=== PATIENT | female | born 1995 | race American Indian/Alaskan Native ===

== ENCOUNTER 2017-06-05 21:08 | Emergency (ER) | payer MEDICAID ==
[2017-06-05 22:18] LABS: Bilirubin,Urine NEG (Negative); Blood,Urine NEG (Negative); Ketones,Urine NEG (Negative); Leukocyte Esterase,Urine TR (Negative); Mucus,Urine FEW /HPF; Nitrite,Urine NEG (Negative); Protein,Urine <15 mg/dL mg/dL (Negative); Urobilinogen,Urine < 2.0 mg/dL (<2.0)
[2017-06-06 04:34] VITALS: BP 110/64
[2017-06-06] MEDS ORDERED: ROCEPHIN IM ONE (04:36)
[2017-06-06] MEDS ORDERED: TYLENOL PO ONE (04:36)
[2017-06-06] MEDS ORDERED: VIBRAMYCIN PO ONE (04:36)
[2017-06-06] MEDS ORDERED: XYLOCAINE 1% MPF 5 mL INFILTRATI ONE (04:36)
--- NOTE | 2017-06-06 04:38 | Emergency Department Report ---
ED Female HPI - General Chief complaint: Urogenital-Female Stated complaint: ABD PAIN/VAG D/C Time Seen by Provider: 06/06/17 04:19 Source: patient, RN notes reviewed Mode of arrival: Ambulatory Limitations: No Limitations - History of Present Illness Initial comments: This is a 22-year-old female, she is previously unknown to me, she reports a distant history of chlamydia. She presents to the ER with lower back pain, pelvic cramping, discomfort, dysuria. Reports this feels similar to prior episode of chlamydia. No headache, neck pain, chest pain, shortness of breath. No vaginal bleeding. No new or different sexual partners. Patient present for a few days, does not radiate anywhere, has no exacerbating or relieving factors. MD Complaint: dysuria, pelvic pain, possible STD -: Gradual Location: suprapubic Severity: mild Quality: cramping Consistency: intermittent Improves with: none Worsens with: none Are you Now?: No Associated Symptoms: abdominal pain, dysuria. denies: nausea/vomiting - Related Data Sexually active: Yes Previous Rx's Medication Instructions Recorded Last Taken Type Acetaminophen [Tylenol Arthritis] 650 mg PO Q6HR PRN #30 tablet.er 06/06/17 Unknown Rx Doxycycline [Vibramycin] 100 mg PO Q12HR #28 capsule 06/06/17 Unknown Rx Ondansetron [Zofran Odt] 4 mg PO QID PRN #20 tab.rapdis 06/06/17 Unknown Rx Allergies Allergy/AdvReac Type Severity Reaction Status Date / Time No Known Allergies Allergy Unverified 06/05/17 21:29 ED Review of Systems ROS: Stated complaint: ABD PAIN/VAG D/C Other details as noted in HPI Constitutional: denies: malaise Eyes: denies: eye discharge ENT: denies: epistaxis Respiratory: denies: cough Cardiovascular: denies: chest pain Gastrointestinal: abdominal pain Genitourinary: dysuria, discharge Musculoskeletal: denies: back pain Skin: denies: lesions Neurological: denies: weakness Psychiatric: anxiety ED Past Medical Hx - Social History Smoking Status: Never Smoker Substance Use Type: None - Medications Home Medications: Home Medications Medication Instructions Recorded Confirmed Last Taken Type Acetaminophen [Tylenol Arthritis] 650 mg PO Q6HR PRN #30 tablet.er 06/06/17 Unknown Rx Doxycycline [Vibramycin] 100 mg PO Q12HR #28 capsule 06/06/17 Unknown Rx Ondansetron [Zofran Odt] 4 mg PO QID PRN #20 tab.rapdis 06/06/17 Unknown Rx ED Physical Exam - General Limitations: No Limitations General appearance: alert, in no apparent distress - Head Head exam: Present: atraumatic, normocephalic - Eye Eye exam: Present: normal appearance, EOMI. Absent: nystagmus - ENT ENT exam: Present: normal exam, normal orophraynx, mucous membranes moist, normal external ear exam - Neck Neck exam: Present: normal inspection, full ROM. Absent: tenderness, meningismus - Respiratory Respiratory exam: Present: normal lung sounds bilaterally. Absent: respiratory distress, wheezes, rales, rhonchi, stridor, chest wall tenderness, accessory muscle use, decreased breath sounds, prolonged expiratory - Cardiovascular Cardiovascular Exam: Present: regular rate, normal rhythm, normal heart sounds. Absent: bradycardia, tachycardia, irregular rhythm, systolic murmur, diastolic murmur, rubs, gallop - GI/Abdominal GI/Abdominal exam: Present: soft, normal bowel sounds. Absent: distended, tenderness, guarding, rebound, rigid, pulsatile mass - External exam: Present: normal external exam Speculum exam: Present: normal speculum exam, cervical discharge. Absent: vaginal bleeding Bi-manual exam: Present: normal bi-manual exam, other (escorted by nurse marquita westfall). Absent: cervical motion tendernes, adnexal tenderness, adnexal mass - Extremities Exam Extremities exam: Present: normal inspection, full ROM, normal capillary refill. Absent: pedal edema, joint swelling, calf tenderness - Back Exam Back exam: Present: normal inspection, full ROM. Absent: tenderness, CVA tenderness (R), CVA tenderness (L), muscle spasm, paraspinal tenderness, vertebral tenderness - Neurological Exam Neurological exam: Present: alert, oriented X3, normal gait, other (Extraocular movements intact. Tongue midline. No facial droop. Facial sensation intact to light touch in the V1, V2, V3 distribution bilaterally. 5 and 5 strength in 4 extremities.. Sensation is intact to light touch in 4 extremities.). Absent : motor sensory deficit - Psychiatric Psychiatric exam: Present: normal affect, normal mood - Skin Skin exam: Present: warm, dry, intact, normal color. Absent: rash ED Course Vital Signs 06/05/17 06/06/17 21:26 04:25 Temperature 98.9 F 98.2 F Pulse Rate 108 H 88 Respiratory 18 16 Rate Blood Pressure 123/67 Blood Pressure 110/64 [Left] O2 Sat by Pulse 100 98 Oximetry ED Medical Decision Making - Lab Data Vital Signs 06/05/17 06/06/17 21:26 04:25 Temperature 98.9 F 98.2 F Pulse Rate 108 H 88 Respiratory 18 16 Rate Blood Pressure 123/67 Blood Pressure 110/64 [Left] O2 Sat by Pulse 100 98 Oximetry Lab Results 06/05/17 Range/Units 22:00 Urine Color Yellow (Yellow) Urine Turbidity Clear (Clear) Urine pH 5.0 (5.0-7.0) Ur Specific [place] 1.024 (1.003-1.030) Urine Protein <15 mg/dl (Negative) mg/dL Urine Glucose (UA) Neg (Negative) mg/dL Urine Ketones Neg (Negative) mg/dL Urine Blood Neg (Negative) Urine Nitrite Neg (Negative) Ur Reducing Substances Not Reportable Urine Bilirubin Neg (Negative) Urine Ictotest Not Reportable Urine Urobilinogen < 2.0 (<2.0) mg/dL Ur Leukocyte Esterase Tr (Negative) Urine WBC (Auto) 8.0 H (0.0-6.0) /HPF Urine RBC (Auto) 1.0 (0.0-6.0) /HPF U Epithel Cells (Auto) 1.0 (0-13.0) /HPF Urine Mucus Few /HPF Urine HCG, Qual Negative (Negative) Differential diagnosis: Urinary tract infection, pelvic inflammatory disease, gonorrhea/chlamydia Assessment and plan: 24-year-old female with pelvic pain, benign gynecologic examination, not consistent with tubo-ovarian abscess, nonspecific irritative urinary symptoms, leukocyte esterase and white blood cells noted in urinalysis, suggestive of chlamydia. Patient will Treated empirically for gonorrhea/chlamydia. Patient is afebrile, with reassuring vital signs and her tachycardia has resolved. Patient wanted to be discharged, her wet prep resulted after discharge, and temperature to trichomoniasis, however this can be followed up as an outpatient, as she was explicitly instructed to have a primary care doctor or go go dancer contact the medical records department for lab results. Critical care attestation.: If time is entered above; I have spent that time in minutes in the direct care of this critically ill patient, excluding procedure time. ED Disposition Clinical Impression: Abdominal pain Disposition: DC-01 TO HOME OR SELFCARE Is pt being admited?: No Does the pt Need Aspirin: No Condition: Stable Instructions: Pelvic Inflammatory Disease (ED) Additional Instructions: Given all this, you'll be treated empirically for disease called pelvic inflammatory disease. We typically treat young females with unexplained lower abdominal pain to protect your ability to have children safely in the future. Cultures were sent today, and results will be available next 3-5 days. Please have your primary care doctor call the medical records department to obtain your culture results. Take the antibiotic therapy as directed. Take the nausea medication and pain medication as directed. I recommend outpatient testing for sexually transmitted diseases, including hepatitis, syphilis and HIV. I also recommend that you abstain from sexual activity until you have completed her antibiotic therapy, a physician states that it is safe for you to resume sexual activity, and any partners that you have been sexually active with have been tested/treated/evaluated for sexual transmitted diseases. Please follow-up with physician within 3-5 days. I recommend that you return to the ER right away with worsening pain, migration of pain, intractable nausea/vomiting, inability tolerate liquid feeds. Prescriptions: Acetaminophen [Tylenol Arthritis] 650 mg PO Q6HR PRN #30 tablet.er PRN Reason: Pain Doxycycline [Vibramycin] 100 mg PO Q12HR #28 capsule Ondansetron [Zofran Odt] 4 mg PO QID PRN #20 tab.rapdis PRN Reason: Nausea Referrals: PRIMARY CAREMD [Primary Care Provider] - 3-5 Days [facility] [Provider Group] - 3-5 Days [facility] [Provider Group] - 3-5 Days [facility] [Provider Group] - 3-5 Days [facility] [Provider Group] - 3-5 Days
== END 2017-06-06 05:04 | disposition home or self-care (01) ==
LOC: ED 21:08
DX: R10.2 Pelvic and perineal pain (principal); M54.5 Low back pain
CPT/HCPCS: 81001; 81025; 87210; 87591; 96372; 99284; J0696

== ENCOUNTER 2018-04-30 10:26 | Emergency (ER) | payer MEDICAID ==
[2018-04-30 10:45] VITALS: BP 127/77
[2018-04-30 12:10] LABS: HCG Qualitative,Urine Positive (Negative)
--- NOTE | 2018-04-30 12:21 | Emergency Department Report ---
Blank Doc - Documentation Documentation: Patient is a 23-year-old black female who is most likely in her second trimester was not had an ultrasound to confirm dates as of yet who is experiencing some mild lower abdominal discomfort as well as some vaginal spotting. The patient states there was some mild dysuria this morning as well however spotting started yesterday and was painless. Patient will have a quantitative ultrasound done today to rule out ectopic and the patient will also have a urinalysis performed.
--- NOTE | 2018-04-30 12:37 | Emergency Department Report ---
ED HPI - General Chief complaint: Vaginal Bleeding Stated complaint: BLEEDING 4MOS Time Seen by Provider: 04/30/18 12:14 Source: patient Mode of arrival: Ambulatory Limitations: No Limitations - History of Present Illness Initial comments: This is a 23-year-old -[place] female who presents with spotting during one . Patient states she was seen once at [facility] and had a follow-up appointment with her MECHANICAL INSULATOR for this Saturday but was unable to make appointment. Patient states last menstrual period was 12/18/2017. Patient states [facility] confirm on her first appointment. She is 4 months . Patient states she voided this morning around 0820 and noticed blood floating in toilet. She is also complaining of lower abdominal discomfort yesterday. Patient states pain was sharp x 2 but has now resolved. Patient states the appointment she missed on Saturday at [facility] was for an ultrasound. She admits to frequency. Denies discharge or vaginal bleeding, fever, and low back pain. MD Complaint: abdominal pain, other (hematuria) -: This morning Location: abdomen (lower abdominal pain) Radiation: none Severity: mild Severity scale (0 -10): 3 Quality: sharp Consistency: now resolved Improves with: none Worsens with: none Associated symptoms: denies other symptoms Vaginal bleeding: none :: Yes OB History - Current : no complications OB History - Previous Pregnancies: no complications Last menstrual period: 01/17/18 Pre-lillian care: followed by OB - Related Data : 1 Para: 0 Ab: 0 Previous Rx's Medication Instructions Recorded Last Taken Type Acetaminophen [Tylenol Arthritis] 650 mg PO Q6HR PRN #30 tablet.er 06/06/17 Unknown Rx Doxycycline [Vibramycin] 100 mg PO Q12HR #28 capsule 06/06/17 Unknown Rx Ondansetron [Zofran Odt] 4 mg PO QID PRN #20 tab.rapdis 06/06/17 Unknown Rx Nitrofurantoin Macrocrystal 100 mg PO BID #10 capsule 04/30/18 Unknown Rx [Nitrofurantoin] Allergies Allergy/AdvReac Type Severity Reaction Status Date / Time No Known Allergies Allergy Unverified 06/05/17 21:29 ED Review of Systems ROS: Stated complaint: BLEEDING 4MOS Other details as noted in HPI Constitutional: denies: chills, fever Respiratory: denies: cough, shortness of breath, wheezing Cardiovascular: denies: chest pain, palpitations Gastrointestinal: abdominal pain (lower abdominal cramping). denies: nausea, vomiting, diarrhea Genitourinary: frequency, hematuria. denies: urgency, dysuria, discharge Musculoskeletal: denies: back pain, joint swelling, arthralgia Neurological: denies: headache, weakness, paresthesias Psychiatric: denies: anxiety, depression ED Past Medical Hx - Past Medical History Previous Medical History?: No - Surgical History Past Surgical History?: No - Social History Smoking Status: Never Smoker Substance Use Type: None - Medications Home Medications: Home Medications Medication Instructions Recorded Confirmed Last Taken Type Acetaminophen [Tylenol Arthritis] 650 mg PO Q6HR PRN #30 tablet.er 06/06/17 Unknown Rx Doxycycline [Vibramycin] 100 mg PO Q12HR #28 capsule 06/06/17 Unknown Rx Ondansetron [Zofran Odt] 4 mg PO QID PRN #20 tab.rapdis 06/06/17 Unknown Rx Nitrofurantoin Macrocrystal 100 mg PO BID #10 capsule 04/30/18 Unknown Rx [Nitrofurantoin] ED Physical Exam - General Limitations: No Limitations General appearance: alert, in no apparent distress - Respiratory Respiratory exam: Present: normal lung sounds bilaterally. Absent: respiratory distress - Cardiovascular Cardiovascular Exam: Present: regular rate, normal rhythm, normal heart sounds. Absent: systolic murmur, diastolic murmur, rubs, gallop - GI/Abdominal GI/Abdominal exam: Present: soft, normal bowel sounds. Absent: distended, tenderness, guarding, rebound, rigid - Back Exam Back exam: Present: normal inspection. Absent: CVA tenderness (R), CVA tenderness (L) - Neurological Exam Neurological exam: Present: alert, oriented X3 - Psychiatric Psychiatric exam: Present: normal affect, normal mood - Skin Skin exam: Present: warm, dry, intact, normal color. Absent: rash ED Course Vital Signs 04/30/18 10:41 Temperature 98.5 F Pulse Rate 90 Respiratory 16 Rate Blood Pressure 127/77 [Left] O2 Sat by Pulse 100 Oximetry ED Medical Decision Making - Radiology Data Radiology results: report reviewed, image reviewed OB ULTRASOUND GREATER THAN 14 WEEKS INDICATION: with vaginal bleeding. COMPARISON: None similar at this institution. TECHNIQUE: Transabdominal grayscale ultrasound with Doppler interrogation. Gestation: Loya Position: Variable Amniotic Fluid: WNL (<24 weeks, subjective) Placenta: Anterior Placental Grade: Zero Heart Rate: 155 BPM Cervical length: 3.2 cm (Normal > 3 cm) It is too early for a anatomical survey BPD: 3 cm = 15 w 3 d HC: 11.3 cm = 15 w 3 d AC: 9.2 cm = 15 w 3 d FL: 1.8 cm = 15 w 1 d HC/AC Ratio: 1.2 Cephalic Index: 85.3 LMP: 01/17/2018 Clinical age = 14 w 5 d EDC: 10/24/2018 US Gest. Age = 15 w 3 d EDC: 10/19/2018 CONCLUSION: Single, viable intrauterine gestation with ultrasound estimated age of 15 weeks and 3 days and EDC of 10/19/2018, currently in variable lie with details, as above. - Medical Decision Making This is a 23 y.o. female presents with hematuria and abdominal discomfort during this morning. Patient was examined by me. Vitals are normal and patient is in no acute distress. Obtained labs and OB ultrasound. Quant [id number]. Single, viable intrauterine gestation with ultrasound estimated age of 15 weeks and 3 days and EDC of 10/19/2018, currently in variable lie with details , as above. Will treat with nitrofurantoin for acute cystitis. Patient instructed to follow up with MECHANICAL INSULATOR. Patient discharged home in stable condition. Critical care attestation.: If time is entered above; I have spent that time in minutes in the direct care of this critically ill patient, excluding procedure time. ED Disposition Clinical Impression: Abdominal cramping affecting Acute cystitis during Qualifiers: Trimester: second trimester Qualified Code(s): O23.12 - Infections of bladder in , second trimester Disposition: DC-01 TO HOME OR SELFCARE Is pt being admited?: No Does the pt Need Aspirin: No Condition: Stable Instructions: Urinary Tract Infection in Women (ED), (ED), Abdominal Pain in (ED) Additional Instructions: Increase fluids to 1-2 L daily. Continues take an medical vitamins daily. Follow-up with MECHANICAL INSULATOR in 2-3 days. Prescriptions: Nitrofurantoin Macrocrystal [Nitrofurantoin] 100 mg PO BID #10 capsule Referrals: TANNER BRAGG MD [Staff Physician] - 3-5 Days [facility] [Provider Group] - 3-5 Days [facility] [Provider Group] - 3-5 Days Time of Disposition: 15:40
[2018-04-30 12:47] LABS: Bilirubin,Urine NEG (Negative); Blood,Urine LG (Negative); Color,Urine Yellow (Yellow); Mucus,Urine FEW /HPF; Protein,Urine <15 mg/dL mg/dL (Negative)
--- NOTE | 2018-04-30 14:58 | Ultrasound Report ---
OB ULTRASOUND GREATER THAN 14 WEEKS INDICATION: with vaginal bleeding. COMPARISON: None similar at this institution. TECHNIQUE: Transabdominal grayscale ultrasound with Doppler interrogation. Gestation: Loya Position: Variable Amniotic Fluid: WNL (<24 weeks, subjective) Placenta: Anterior Placental Grade: Zero Heart Rate: 155 BPM Cervical length: 3.2 cm (Normal > 3 cm) It is too early for a anatomical survey BPD: 3 cm = 15 w 3 d HC: 11.3 cm = 15 w 3 d AC: 9.2 cm = 15 w 3 d FL: 1.8 cm = 15 w 1 d HC/AC Ratio: 1.2 Cephalic Index: 85.3 LMP: 01/17/2018 Clinical age = 14 w 5 d EDC: 10/24/2018 US Gest. Age = 15 w 3 d EDC: 10/19/2018 CONCLUSION: Single, viable intrauterine gestation with ultrasound estimated age of 15 weeks and 3 days and EDC of 10/19/2018, currently in variable lie with details, as above. Thank you for the opportunity to participate in this patient's care.
== END 2018-04-30 16:11 | disposition home or self-care (01) ==
LOC: ED 10:26
DX: O23.12 Infections of bladder in pregnancy, second trimester (principal); R10.2 Pelvic and perineal pain; Z3A.15 15 weeks gestation of pregnancy
CPT/HCPCS: 36415; 76805; 81001; 81025; 84702; 86900; 86901

== ENCOUNTER 2018-09-23 15:27 | Outpatient (CLI) | payer MEDICAID ==
[2018-09-23] MEDS ORDERED: LACTATED RINGERS 500 ML IV ONE (15:48)
[2018-09-23 15:52] VITALS: BP 119/75
[2018-09-23 16:19] LABS: Bacteria,Urine 1+ /HPF (Negative); Bilirubin,Urine NEG (Negative); Blood,Urine NEG (Negative); Color,Urine Yellow (Yellow); Mucus,Urine FEW /HPF; Protein,Urine <15 mg/dL mg/dL (Negative)
[2018-09-23] MEDS ORDERED: ROCEPHIN/NS 1 GM/50 ML 1 GM/50 ML BAG IV SCH (18:30)
[2018-09-23] MEDS ORDERED: LACTATED RINGERS 1,000 ML IV ONE (19:01)
== END 2018-09-23 19:15 | disposition home or self-care (01) ==
LOC: TRG 15:27
PROVIDERS: ATTEND Obstetrics & Gynecology
DX: O47.03 False labor before 37 completed weeks of gestation, third trimester (principal); Z3A.36 36 weeks gestation of pregnancy; Z87.891 Personal history of nicotine dependence
CPT/HCPCS: 59025; 81001; 96360; 96361; 96365; J0696; J7120

== ENCOUNTER 2018-10-22 21:19 | Outpatient (CLI) | payer MEDICAID | END 2018-10-22 23:00 | disposition home or self-care (01) | LOC: TRG 21:19 | CPT/HCPCS: 59025 ==

== ENCOUNTER 2020-12-29 12:40 | Emergency (ER) | payer MEDICAID ==
[2020-12-29 14:10] VITALS: BP 108/78
--- NOTE | 2020-12-29 16:06 | Emergency Department Report ---
ED Female HPI - General Chief complaint: Abdominal Pain Stated complaint: LOWER BACK/ABD PAIN Time Seen by Provider: 12/29/20 16:04 Source: patient Mode of arrival: Ambulatory Limitations: No Limitations - History of Present Illness Initial comments: Patient is a 25-year-old female presents emergency room with complaints of lower abdominal and lower back cramping for 2 months. She states that she is also had heavy vaginal discharge which she reports is watery and has a fishy odor. She states that she went to her HULL OUTFIT SUPERVISOR and had a full STD panel and wet prep which she states was normal. She states that her HULL OUTFIT SUPERVISOR did not recommend any medication. She has not followed up with her HULL OUTFIT SUPERVISOR since then. She denies any fever, nausea, vomiting, diarrhea, dysuria, urinary frequency, pelvic pain. No past medical history. No allergies medications. Last menstrual cycle beginning of December. - Related Data Home Medications Medication Instructions Recorded Confirmed Last Taken Vit,Calc76/Iron/Folic 1 each PO DAILY 10/22/18 10/26/18 10/24/18 09:00 [Pnv 29-1 Tablet] Valacyclovir HCl [Valtrex] 500 mg PO DAILY 10/22/18 10/26/18 10/24/18 09:00 Ferrous Sulfate [Iron] 325 mg PO QDAY 10/26/18 10/26/18 10/22/18 09:00 1 Previous Rx's Medication Instructions Recorded Last Taken Type Ibuprofen [Ibuprofen 800] 800 mg PO Q6H PRN 10 Days #30 10/26/18 Unknown Rx tablet MDD 3200mg oxyCODONE /ACETAMINOPHEN [Percocet 1 tab PO Q4HR PRN 14 Days #30 tab 10/26/18 Unknown Rx 5/325] Doxycycline Hyclate [Doxycycline 100 mg PO BID 7 Days #14 tab 12/29/20 Unknown Rx Hyclate TAB] metroNIDAZOLE [Flagyl] 500 mg PO BID 7 Days #14 tab 12/29/20 Unknown Rx Allergies Allergy/AdvReac Type Severity Reaction Status Date / Time No Known Allergies Allergy Verified 09/23/18 15:47 ED Review of Systems ROS: Stated complaint: LOWER BACK/ABD PAIN Other details as noted in HPI Comment: All other systems reviewed and negative ED Past Medical Hx - Past Medical History Previous Medical History?: Yes Hx Hypertension: No Hx Congestive Heart Failure: No Hx Diabetes: No Hx Deep Vein Thrombosis: No Hx Renal Disease: No Hx Sickle Cell Disease: No Hx Seizures: No Hx Asthma: No Hx COPD: No Hx HIV: No - Surgical History Past Surgical History?: No - Social History Smoking Status: Former Smoker - Medications Home Medications: Home Medications Medication Instructions Recorded Confirmed Last Taken Type Vit,Calc76/Iron/Folic 1 each PO DAILY 10/22/18 10/26/18 10/24/18 09:00 History [Pnv 29-1 Tablet] Valacyclovir HCl [Valtrex] 500 mg PO DAILY 10/22/18 10/26/18 10/24/18 09:00 History Ferrous Sulfate [Iron] 325 mg PO QDAY 10/26/18 10/26/18 10/22/18 09:00 History 1 Ibuprofen [Ibuprofen 800] 800 mg PO Q6H PRN 10 Days #30 10/26/18 Unknown Rx tablet MDD 3200mg oxyCODONE /ACETAMINOPHEN [Percocet 1 tab PO Q4HR PRN 14 Days #30 tab 10/26/18 Unknown Rx 5/325] Doxycycline Hyclate [Doxycycline 100 mg PO BID 7 Days #14 tab 12/29/20 Unknown Rx Hyclate TAB] metroNIDAZOLE [Flagyl] 500 mg PO BID 7 Days #14 tab 12/29/20 Unknown Rx ED Physical Exam - General Limitations: No Limitations General appearance: alert, in no apparent distress - Head Head exam: Present: atraumatic, normocephalic - Eye Eye exam: Present: normal appearance - ENT ENT exam: Present: mucous membranes moist - Respiratory Respiratory exam: Present: normal lung sounds bilaterally. Absent: respiratory distress, wheezes, rales, rhonchi, stridor, chest wall tenderness, accessory muscle use, decreased breath sounds, prolonged expiratory - Cardiovascular Cardiovascular Exam: Present: regular rate, normal rhythm, normal heart sounds. Absent: systolic murmur, diastolic murmur, rubs, gallop - GI/Abdominal GI/Abdominal exam: Present: soft, normal bowel sounds. Absent: distended, tenderness, guarding, rebound, rigid - Neurological Exam Neurological exam: Present: alert, oriented X3 - Psychiatric Psychiatric exam: Present: normal affect, normal mood - Skin Skin exam: Present: warm, dry, intact ED Course Vital Signs 12/29/20 14:09 Temperature 98.3 F Pulse Rate 72 Respiratory 16 Rate Blood Pressure 108/78 O2 Sat by Pulse 100 Oximetry ED Medical Decision Making - Medical Decision Making Patient is a 25-year-old female presents emergency room with complaints of lower abdominal and lower back cramping for 2 months. She states that she is also had heavy vaginal discharge which she reports is watery and has a fishy odor. She states that she went to her HULL OUTFIT SUPERVISOR and had a full STD panel and wet prep which she states was normal. She states that her HULL OUTFIT SUPERVISOR did not recommend any medication. She has not followed up with her HULL OUTFIT SUPERVISOR since then. She denies any fever, nausea, vomiting, diarrhea, dysuria, urinary frequency, pelvic pain. No past medical history. No allergies medications. Last menstrual cycle beginning of December. Vitals are normal. No abdominal tenderness on exam, no guarding, no rebound, no rigidity, no bowel sounds, no peritoneal signs. Patient deferred examination. UA shows evidence of white blood cells, there are many epithelial cells, this could be due to contamination. Given that patient has had unprotected intercourse and there are some bacteria cells in the urine, will cover patient for STDs. Her symptoms that she is presenting with the most consistent with a vaginitis likely secondary to bacterial vaginosis. Patient given ceftriaxone IM while in the emergency department. Patient given prescription for doxycycline and Flagyl. Advised patient Please take medication as prescribed. Increase your water intake. Please follow-up with your HULL OUTFIT SUPERVISOR and have a full STD panel performed again. Avoid sexual intercourse. Have any partner tested and treated as well. Return to emergency room for any new or symptoms. Critical care attestation.: If time is entered above; I have spent that time in minutes in the direct care of this critically ill patient, excluding procedure time. ED Disposition Clinical Impression: UTI (urinary tract infection) Qualifiers: Urinary tract infection type: acute cystitis Hematuria presence: without hematuria Qualified Code(s): N30.00 - Acute cystitis without hematuria Vaginitis Qualifiers: Chronicity: acute Qualified Code(s): N76.0 - Acute vaginitis Disposition: TO HOME OR SELFCARE Is pt being admited?: No Does the pt Need Aspirin: No Condition: Stable Instructions: Urinary Tract Infection, Adult, [id number], Vaginitis, Abdominal Pain (ED) Additional Instructions: Please take medication as prescribed. Increase your water intake. Please follow-up with your HULL OUTFIT SUPERVISOR and have a full STD panel performed again. Avoid sexual intercourse. Have any partner tested and treated as well. Return to emergency room for any new or symptoms. Prescriptions: Doxycycline Hyclate [Doxycycline Hyclate TAB] 100 mg PO BID 7 Days #14 tab metroNIDAZOLE [Flagyl] 500 mg PO BID 7 Days #14 tab Referrals: your, machine hand [Other] - 2-3 Days Time of Disposition: 17:10 Print Language: TAMAZIGHT
[2020-12-29 16:50] LABS: Bilirubin,Urine NEG (Negative); Blood,Urine NEG (Negative); Color,Urine Yellow (Yellow); Mucus,Urine FEW /HPF; Urobilinogen,Urine < 2.0 mg/dL (<2.0)
[2020-12-29 17:02] LABS: HCG Qualitative,Urine Negative (Negative)
[2020-12-29] MEDS ORDERED: LIDOCAINE-MPF (1%) 10 MG/1 ML VIAL 5 ML INFILTRATI ONE (17:09)
== END 2020-12-29 18:03 | disposition home or self-care (01) ==
LOC: ED 12:40
DX: N39.0 Urinary tract infection, site not specified (principal); N76.0 Acute vaginitis; Z87.891 Personal history of nicotine dependence; Z79.1 Long term (current) use of non-steroidal anti-inflammatories (NSAID); Z79.899 Other long term (current) drug therapy
CPT/HCPCS: 81001; 81025; 87086; 96372; 99283; J0696

== ENCOUNTER 2022-05-15 23:36 | Inpatient (IN) | payer MEDICAID ==
[2022-05-15] MEDS ORDERED: LACTATED RINGERS 1,000 ML ONE (23:47)
[2022-05-16] MEDS ORDERED: METHYLERGONOVINE MALEATE 0.2 MG/ML VIAL IM PRN (00:37)
[2022-05-16] MEDS ORDERED: ACETAMINOPHEN 325 MG TAB PO PRN (00:37)
[2022-05-16] MEDS ORDERED: BUTORPHANOL 2 MG/1 ML INJ IV PRN (00:37)
[2022-05-16] MEDS ORDERED: fentaNYL 100 MCG/2 ML INJ IV PRN (00:37)
[2022-05-16] MEDS ORDERED: CARBOPROST TROMETHAMINE 250 MCG/1 ML INJ IM PRN (00:37)
[2022-05-16] MEDS ORDERED: TERBUTALINE 1 MG/1 ML INJ SUB-Q PRN (00:37)
--- NOTE | 2022-05-16 00:38 | History and Physical Report ---
History of Present Illness Date of examination: 05/16/22 Date of admission: 05/15/22 23:36 Chief complaint: Trial of labor after (TOLAC) History of present illness: 27-year-old at 39-5/7 weeks gestation who presents to OB triage reporting regular and painful uterine contractions every 5 minutes. There is bloody show. There is no leaking of fluid. There is good movement. The patient had a previous low-transverse delivery, and she desires trial of labor after (TOLAC). Cervical exam was 3 to 4 cm dilated. She is admitted to labor and delivery in early labor and to attempt TOLAC. Past History Past Medical History: no pertinent history Past Surgical History: section COIL WINDER HAND History: herpes Family/Genetic History: none Social history: no significant social history - Obstetrical History Expected Date of Delivery: 05/18/22 Actual Gestation: 39 Week(s) 5 Day(s) : 2 Para: 1 Hx # Term Pregnancies: 1 Number of Pregnancies: 0 Spontaneous Abortions: 0 Induced : 0 Number of Living Children: 1 Medications and Allergies Allergies Allergy/AdvReac Type Severity Reaction Status Date / Time No Known Allergies Allergy Verified 09/23/18 15:47 Home Medications Medication Instructions Recorded Confirmed Last Taken Type Vit,Calc76/Iron/Folic 1 each PO DAILY 10/22/18 05/11/22 10/24/18 09:00 History [Pnv 29-1 Tablet] Valacyclovir HCl [Valtrex] 500 mg PO DAILY 10/22/18 05/11/22 10/24/18 09:00 History Ferrous Sulfate [Iron] 325 mg PO QDAY 10/26/18 05/11/22 10/22/18 09:00 History 1 Cholecalciferol Vit D3 [Vitamin D3 1,000 unit PO QDAY 05/11/22 05/11/22 Unknown History 1,000 UNIT TAB] Review of Systems All systems: negative - Vital Signs Vital signs: Vital Signs Temp Pulse Resp BP Pulse Ox 98.6 F 65 16 109/70 98 05/14/22 09:40 05/14/22 09:40 05/14/22 09:40 05/14/22 09:40 05/14/22 09:40 Temp Pulse Resp BP Pulse Ox 98.6 F 98 H 16 109/70 98 05/14/22 09:40 05/16/22 00:32 05/14/22 09:40 05/14/22 09:40 05/16/22 00:32 - Physical Exam Breasts: Positive: normal Cardiovascular: Regular rate Lungs: Positive: Normal air movement Abdomen: Positive: normal appearance Genitourinary (Female): Positive: normal external genitalia, normal perenium Vulva: both: normal Vagina: Positive: normal moisture Uterus: Positive: enlarged Adnexa: both: normal Deep Tendon Reflex Grade: Normal +2 - Obstetrical FHR: category 1 Uterine Contraction Monitor Mode: External Cervical Dilatation: 3.5 Cervical Effacement Percentage: 70 station: -3 Uterine Contraction Frequency (min): 5 Uterine Contraction Pattern: Regular Results Result Diagrams: 05/16/22 00:02 All other labs normal. Ultrasound: report reviewed, image reviewed, other (OB US Limited= SLIUP. Vertex. Anterior placenta. EFW= 3791 g (69th %-ile). ALVIN= 9.7 cm. BEV thickness= 9 mm.) Assessment and Plan - Patient Problems (1) 39 weeks gestation of Current Visit: Yes Status: Acute Plan to address problem: care is up-to-date at [facility]. 1 hour glucose tolerance test is within normal limits. She is GBS negative. (2) Active labor at term Current Visit: Yes Status: Acute Plan to address problem: The patient is regular and painful uterine contractions and cervix dilated to 3- 4 cm. She is admitted to labor and delivery in early labor. Artificially rupture membranes. Administer Pitocin if contractions not adequate. (3) Previous delivery, antepartum condition or complication Current Visit: Yes Status: Acute Plan to address problem: The patient had a previous in 2019 at [facility]. The operative report was reviewed and revealed primary low-transverse delivery with a 2 layer closure. According to operative report, the patient reached maximal cervical dilation at 7 cm at which time there was suspected chorioamnionitis and tachycardia which led the provider to r ecommend delivery. (4) Patient desires vaginal after section () Current Visit: Yes Status: Acute Plan to address problem: The patient was counseled extensively according to ACOG Practice Bulletin 205 guidelines. According to these guidelines, the patient has an approximately 1- 2% chance of uterine rupture. According to the MFM you calculator, this patient has an approximately 69% chance of a successful . The patient was counseled that TOLAC carries a risk of maternal , , hemorrhage, blood transfusion, and hysterectomy. Voicing understanding of all of this, the patient wishes to proceed with TOLAC and she signed the consent form. (5) Genital herpes affecting in third trimester Current Visit: Yes Status: Acute Plan to address problem: Patient was on suppression with oral medications. There are no active lesions.
[2022-05-16] MEDS ORDERED: LACTATED RINGERS 1,000 ML IV SCH (00:45)
[2022-05-16] MEDS ORDERED: OXYTOCIN DRIP 30 UNITS/500 ML BAG IV SCH ×2 (01:00)
[2022-05-16 01:33] LABS: Hematocrit 38.7 % (30.3-42.9); Hemoglobin 12.3 gm/dl (10.1-14.3); Mean Corpuscular HGB Conc 32 % (30-34); Red Blood Count 5.66 M/mm3 (3.65-5.03)
[2022-05-16 01:42] LABS: Mean Corpuscular Volume 68 fl (79-97); Platelet Count 143 K/mm3 (140-440); Red Cell Distribution Width 21.3 % (13.2-15.2)
--- NOTE | 2022-05-16 02:11 | Ultrasound Report ---
ULTRASOUND OBSTETRIC Indication: Abdominal pain Findings: There is a single intrauterine . BPD = 8.8 cm = 35 weeks, 3 day(s). Head circumference = 32.3 cm = 36 weeks, 3 day(s). Abdominal circumference = 38.1 cm = 42 weeks, 0 day(s). Femur length = 7.2 cm = 36 weeks, 6 day(s). Overall estimated sonographic age = 37 weeks, 5 day(s). heart rate is 137 beats per minute. Estimated weight is 3791 grams position is cephalic. Placenta is anterior and grade 3 . Amniotic fluid volume appears normal. Impression: 1. Single living intrauterine with estimated sonographic age of 37 weeks, 5 day(s). 2. Lower uterine segment measures 9 mm in thickness. Signer Name: Anson Li MD Signed: 05/16/2022 2:07 AM Workstation Name: [id number]
[2022-05-16] MEDS ORDERED: ePHEDrine SULFATE 50 MG/1 ML INJ ONE (04:08)
[2022-05-16] MEDS ORDERED: fentaNYL-BUPIV 2 MCG/ML-0.125% 200 MCG/100 ML BAG EPIDURAL SCH (04:57)
[2022-05-16] MEDS ORDERED: NALOXONE 0.4 MG/1 ML INJ IV PRN (04:57)
--- NOTE | 2022-05-16 04:59 | Anesthesia Consultation ---
Anesthesia Consult and Med Hx Date of service: 05/16/22 - Airway Anesthetic Teeth Evaluation: Good ROM Head & Neck: Adequate Mental/Hyoid Distance: Adequate Mallampati Class: Class II Intubation Access Assessment: Probably Good - Pulmonary Exam CTA: Yes - Cardiac Exam Cardiac Exam: RRR - Pre-Operative Health Status ASA Pre-Surgery Classification: ASA2 Proposed Anesthetic Plan: Epidural - Pulmonary Hx Smoking: Yes (STOPPED 2020) Hx Asthma: No Hx Respiratory Symptoms: No SOB: No COPD: No Home Oxygen Therapy: No Hx Pneumonia: No Hx Sleep Apnea: No ([place] PRE SCREEN NEGATIVE) - Cardiovascular System Hx Hypertension: No Hx Coronary Artery Disease: No Hx Heart Attack/AMI: No Hx Angina: No Hx Percutaneous Transluminal Coronary Angioplasty (PTCA): No Hx Cardia Arrhythmia: No Hx Pacemaker: No Hx Internal Defibrillator: No Hx Valvular Heart Disease: No Hx Heart Murmur: No Hx Peripheral Vascular Disease: No - Central Nervous System Hx Neuromuscular Disorder: No Hx Seizures: No CVA: No Hx Back Pain: No Hx Psychiatric Problems: No - Gastrointestinal Hx Ulcer: No Hx Gastroesophageal Reflux Disease: No - Endocrine Hx Renal Disease: No Hx End Stage Renal Disease: No Hx Cirrhosis: No Hx Liver Disease: No Hx Insulin Dependent Diabetes: No Hx Non-Insulin Dependent Diabetes: No Hx Thyroid Disease: No Hx Hypothyroidism: No Hx Hyperthyroidism: No - Hematic Hx Anemia: No Hx Sickle Cell Disease: No - Other Systems Hx Alcohol Use: No Hx Cancer: No Hx Obesity: No
--- NOTE | 2022-05-16 05:00 | Anesthesia Day of Surgery ---
Anesthesia Day of Surgery - Day of Surgery Patient Examined: Yes Patient H&P Reviewed: Yes Patient is NPO: Yes Beta Blockers: No Cardiac Clearance: No Pulmonary Clearance: No Callum's Test: N/A
--- NOTE | 2022-05-16 05:33 | Progress Note ---
Labor Epidural - Labor Epidural Start Time: 04:44 Stop Time: 04:49 Performed by:: SRINIVASAN MADISON Procedure: Epidural Requested for Labor Pain. H&P and PT Chart reviewed and consent obtained. Time out performed and the procedure was explained, all questions answered. Patient was placed in a sitting position with monitors applied. The PTs back was prepped and draped in usual sterile fashion. The Skin was localized with 3 mL of 1% lidocaine at L3-L4. A 17-gauge Touhy epidural needle was advanced to ELDER with saline at 7 cm and no blood/CSF was noted via epidural needle. Epidural catheter was advanced to 12 cm. There was negative aspiration for blood and CSF in the catheter and negative response to a test dose of 3 ml 1.5% lidocaine w/ Epi and a sterile dressing was applied Patient tolerated the procedure well and there were no immediate complications noted.
[2022-05-16] MEDS: ePHEDrine SULFATE 50 MG/1 ML INJ IV PRN ×3 (05:55→07:31)
[2022-05-16] MEDS ORDERED: MINERAL OIL 30 ML ORAL LIQD ONE (07:49)
[2022-05-16] MEDS ORDERED: LIDOCAINE (2%) 20 MG/1 ML VIAL 20 ML MDV INFILTRATI ONE (07:49)
--- NOTE | 2022-05-16 13:15 | Post Anesthesia Evaluation ---
- Post Anesthesia Evaluation Patient Participated: Yes Airway Patent: Yes Stable Respiratory Function: Yes Nausea/Vomiting: No Temp > 96.8F: Yes Pain Manageable: Yes Adequeate Hydration: Yes Anesthesia Complications: No Block Receding Appropriately: Yes Patient on Ventilator: No
[2022-05-16] MEDS ORDERED: LANOLIN/ZINC/DIMETHICONE (LANSINOH) 7 GM TP PRN ×2 (14:22)
[2022-05-16] MEDS ORDERED: WITCH HAZEL/ GLYCERIN PAD TP PRN (14:22)
[2022-05-16] MEDS ORDERED: HYDROcodone/ACETAMINOPHEN 5-325 MG TAB PO PRN (14:22)
[2022-05-16] MEDS ORDERED: diphenhydrAMINE 25 MG CAP PO PRN (14:22)
[2022-05-16] MEDS ORDERED: BENZOCAINE/MENTHOL 20/0.5% TOP SPRAY 56 GM TP PRN (14:22)
[2022-05-16] MEDS ORDERED: PROMETHAZINE 25 MG TAB PO PRN (14:22)
[2022-05-16] MEDS: IBUPROFEN 800 MG TAB PO SCH ×2 (15:14→22:00)
--- NOTE | 2022-05-16 16:25 | Procedure Note ---
OB Delivery Note - Delivery Date of Delivery: 05/16/22 Surgeon: TERESA ANDERSEN Estimated blood loss: 300cc - Vaginal Delivery presentation: vertex Delivery position: OA Intrapartum events: none Delivery induction: oxytocin Delivery augmentation: rupture of membranes, pitocin Delivery monitor: internal FHT, internal uterine Route of delivery: Delivery placenta: spontaneous, expressed Delivery cord: 3 umbilical vessels Episiotomy: none Delivery laceration: 1st degree, other (labial) Delivery repair: vicryl Anesthesia: epidural - Infant A at 1 minute: 8 at 5 minutes: 9 Infant Gender: Male (7lbs 14oz.)
[2022-05-17 06:21] LABS: Hematocrit 34.1 % (30.3-42.9); Hemoglobin 10.6 gm/dl (10.1-14.3)
[2022-05-17] MEDS: IBUPROFEN 800 MG TAB PO SCH ×2 (06:58→14:06)
--- NOTE | 2022-05-17 09:33 | Progress Note ---
Subjective - Subjective Date of service: 05/17/22 Principal diagnosis: Objective - Vital Signs Latest vital signs: Vital Signs Temp Pulse Resp BP BP Pulse Ox Pulse Ox 05/17/22 04:00 98.4 F 66 16 124/78 05/17/22 00:30 98.0 F 18 100/65 05/17/22 00:15 98.6 F 78 05/16/22 20:46 97.2 F L 76 18 100/66 99 05/16/22 20:14 100 05/16/22 15:40 98.4 F 78 20 111/48 100 05/16/22 10:32 98 H 100 05/16/22 10:31 94 H 105/56 05/16/22 10:30 98 05/16/22 10:27 101 H 100 05/16/22 10:25 98.7 F 92 H 14 109/64 98 05/16/22 10:22 97 H 100 05/16/22 10:17 94 H 108/56 100 05/16/22 10:12 91 H 100 05/16/22 10:07 92 H 100 05/16/22 10:02 98 H 112/57 100 05/16/22 09:57 102 H 100 05/16/22 09:52 98 H 100 05/16/22 09:47 94 H 108/62 100 05/16/22 09:42 95 H 100 05/16/22 09:37 98 H 100 Intake and Output 05/16/22 05/17/22 05/17/22 23:59 07:59 15:59 Intake Total 540 320 Balance 540 320 Intake: Oral 240 320 Intake, Free Water 300 Other: Total, Intake Amount 240 320 # Voids Self-Catheterization 1 Void 1
[2022-05-17] MEDS ORDERED: PRENATAL VIT27-FE FUMARATE-FOLIC ACID VIT TAB PO SCH (10:00)
[2022-05-17] MEDS ORDERED: medroxyPROGESTERone ACETATE 150 MG/ML SYRINGE IM ONE (12:01)
--- NOTE | 2022-05-17 12:01 | Discharge Summary ---
Providers - Providers Date of Admission: 05/15/22 23:36 Date of discharge: 05/17/22 Attending physician: JENNIFER MENDOZA Primary care physician: LISA HARMAN MD Hospitalization Reason for admission: other (TOLAC) Delivery: Episiotomy: none Laceration: 1st degree (labial) Other procedures: none complications: none Discharge diagnosis: baby: male Condition at discharge: Good Disposition: 01 HOME / SELF CARE / HOMELESS Plan - Discharge Medications Prescriptions: Ibuprofen [Motrin 800 MG tab] 800 mg PO Q8HR #30 tablet - Provider Discharge Summary Activity: no sex for 6 weeks, no heavy lifting 4 weeks, no strenuous exercise Diet: routine Instructions: routine Additional instructions: [] Smoking cessation referral if applicable(refer to patient education folder for contact #) [] Refer to [facility] Booklet Call your doctor immediately for: * Fever > 100.5 * Heavy vaginal bleeding ( >1 pad per hour) * Severe persistent headache * Shortness of breath * Reddened, hot, painful area to leg or breast * Drainage or odor from incision. - Follow up plan Follow up: PRIMARY MD KIMANI [Primary Care Provider] - 7 Days
[2022-05-17 16:53] VITALS: BP 109/74
== END 2022-05-17 18:15 | disposition home or self-care (01) | DRG 774 ==
LOC: APU 23:36 → LD 05-16 01:00 → OB 05-16 11:06
PROVIDERS: ADMIT Obstetrics & Gynecology; ATTEND Obstetrics & Gynecology
PROC: 10E0XZZ Delivery of Products of Conception, External Approach (ICD-10-PCS; principal; 2022-05-16)
PROC: 0HQ9XZZ Repair Perineum Skin, External Approach (ICD-10-PCS; 2022-05-16)
PROC: 3E0R3BZ Introduction of Anesthetic Agent into Spinal Canal, Percutaneous Approach (ICD-10-PCS; 2022-05-16)
PROC: 00HU33Z Insertion of Infusion Device into Spinal Canal, Percutaneous Approach (ICD-10-PCS; 2022-05-16)
PROC: 3E033VJ Introduction of Other Hormone into Peripheral Vein, Percutaneous Approach (ICD-10-PCS; 2022-05-16)
DX: O34.211 Maternal care for low transverse scar from previous cesarean delivery (principal); O98.32 Other infections with a predominantly sexual mode of transmission complicating childbirth; Z20.822 Contact with and (suspected) exposure to COVID-19; Z37.0 Single live birth; Z3A.39 39 weeks gestation of pregnancy; O70.0 First degree perineal laceration during delivery; A60.00 Herpesviral infection of urogenital system, unspecified; Z87.891 Personal history of nicotine dependence
CPT/HCPCS: 36415; 59025; 76815; 76816; 76819; 85014; 85018; 85027; 86592; 86850; 86900; 86901; 96360; G0378; J3490; J1050; J7120; U0003